=== PATIENT | female | born 1955 | race African-American/Black ===

== ENCOUNTER 2017-12-19 13:42 | Outpatient (CLI) | payer OTHER | END 2017-12-19 13:43 | disposition home or self-care (01) | LOC: BICMAMMO 13:42 | PROVIDERS: ATTEND Emergency Medicine | DX: Z12.31 Encounter for screening mammogram for malignant neoplasm of breast (principal); Z85.41 Personal history of malignant neoplasm of cervix uteri | CPT/HCPCS: 77067 ==

== ENCOUNTER 2018-02-01 18:12 | Emergency (ER) | payer OTHER ==
[2018-02-01] MEDS ORDERED: Oxymetazoline HCl 0.05% ( 15 ML ) ONE (18:30)
== END 2018-02-01 19:51 | disposition home or self-care (01) ==
LOC: ERS 18:12
DX: R04.0 Epistaxis (principal); E78.5 Hyperlipidemia, unspecified; E78.1 Pure hyperglyceridemia; I10 Essential (primary) hypertension; F32.9 Major depressive disorder, single episode, unspecified; F17.210 Nicotine dependence, cigarettes, uncomplicated; Z79.899 Other long term (current) drug therapy; Z79.82 Long term (current) use of aspirin
CPT/HCPCS: 30901

== ENCOUNTER 2018-02-04 09:55 | Emergency (ER) | payer OTHER | END 2018-02-04 11:55 | disposition home or self-care (01) | LOC: ERS 09:55 | DX: R04.0 Epistaxis (principal); E78.2 Mixed hyperlipidemia; I10 Essential (primary) hypertension; F32.9 Major depressive disorder, single episode, unspecified; F17.210 Nicotine dependence, cigarettes, uncomplicated; Z79.899 Other long term (current) drug therapy; Z79.82 Long term (current) use of aspirin | CPT/HCPCS: 99283 ==

== ENCOUNTER 2020-03-15 13:53 | Outpatient (CLI) | payer OTHER ==
--- NOTE | 2020-03-15 15:06 | MMO ---
Bilateral MAMMO Bilat Screen DDI. CLINICAL HISTORY: Patient is 64 years old and is seen for screening. The patient has no family history of breast cancer. VIEWS: The views performed were: bilateral craniocaudal and bilateral mediolateral oblique. FILMS COMPARED: The present examination has been compared to prior imaging studies performed at [facility] on 04/22/2012, 07/24/2013, 02/10/2015 and 07/10/2016. This study has been interpreted with the assistance of computer-aided detection. MAMMOGRAM FINDINGS: There are scattered fibroglandular densities. There are no suspicious masses, suspicious calcifications, or new areas of architectural distortion. IMPRESSION: THERE IS NO MAMMOGRAPHIC EVIDENCE OF MALIGNANCY. A ROUTINE FOLLOW-UP MAMMOGRAM IN 1 YEAR IS RECOMMENDED. ACR BI-RADS Category 1 - Negative MAMMOGRAPHY NOTE: 1. A negative mammogram report should not delay a biopsy if a dominant of clinically suspicious mass is present. 2. Approximately 10% to 15% of breast cancers are not detected by mammography. 3. Adenosis and dense breasts may obscure an underlying neoplasm. Reported by: YENI CASTILLO MD Electonically Signed: [id number]
== END 2020-03-15 13:54 | disposition home or self-care (01) ==
LOC: BICMAMMO 13:53
PROVIDERS: ATTEND Hospitalist
DX: Z12.31 Encounter for screening mammogram for malignant neoplasm of breast (principal)
CPT/HCPCS: 77067

== ENCOUNTER 2020-06-22 21:34 | Emergency (ER) | payer OTHER ==
[2020-06-22] MEDS ORDERED: Aspirin Chewable 81 MG TAB ONE (22:40)
[2020-06-22 23:11] LABS: Hemoglobin 15.7 g/dL (12.0-16.0); Mean Corpuscular HGB CONC 31.8 g/dL (32.0-36.0); Mean Corpuscular Hemoglobin 28.7 pg (27.0-31.0); Mean Corpuscular Volume 90.3 fL (78.0-98.0); RBC Distribution Width 13.4 % (11.5-14.5); Red Blood Cell (RBC) Count 5.47 mill/uL (4.20-5.40)
[2020-06-22 23:22] LABS: ALT (SGPT) 24 U/L (8-55); AST (SGOT) 18 U/L (5-34); Albumin 3.7 g/dL (3.4-4.8); Alkaline Phosphatase 90 U/L (40-110); Anion Gap 8 mmol/L (10-20); BUN (Urea Nitrogen) 13 mg/dL (9.8-20.1); Bilirubin, Total 0.3 mg/dL (0.2-1.2); Calc. Creatinine Clearance 0 mL/min (70-130); Calcium 8.9 mg/dL (7.8-10.44); Carbon Dioxide 31 mmol/L (23-31); Chloride 104 mmol/L (98-107); Globulin 3.3 g/dL (2.4-3.5); Glucose 111 mg/dL (80-115); Potassium 3.3 mmol/L (3.5-5.1); Sodium 140 mmol/L (136-145)
[2020-06-22 23:38] LABS: #Basophils 0.1 thou/uL (0.0-0.2); #Eosinphils 0.3 thou/uL (0.0-0.7); #Lymphocytes 2.7 thou/uL (1.20-3.40); #Monocytes 0.5 thou/uL (0.11-0.59); %Basophils 0.8 % (0.0-1.0); %Eosinophils 3.5 % (0.0-10.0); %Lymphocytes 31.5 % (21.0-51.0); %Monocytes 6.1 % (0.0-10.0); %Neutrophils 58.1 % (42.0-75.0); Mean Platelet Volume 10.9 fL (7.4-10.4); Platelet Count 135 thou/uL (130-400); Platelet Morphology Comment Appears Decreased; White Blood Cell (WBC) Count 8.6 thou/uL (4.8-10.8)
[2020-06-23 01:18] LABS: Troponin I Less than 0.010 ng/mL (< 0.028)
== END 2020-06-23 01:30 | disposition home or self-care (01) ==
LOC: ERS 21:34
DX: R07.9 Chest pain, unspecified (principal); M79.605 Pain in left leg; E87.6 Hypokalemia; E78.5 Hyperlipidemia, unspecified; E78.00 Pure hypercholesterolemia, unspecified; I10 Essential (primary) hypertension; Z87.891 Personal history of nicotine dependence; Z79.82 Long term (current) use of aspirin; Z79.899 Other long term (current) drug therapy
CPT/HCPCS: 36415; 71045; 80053; 83880; 84484; 85025; 85379; 93005

== ENCOUNTER 2021-01-18 20:06 | Emergency (ER) | payer OTHER ==
[2021-01-18 20:42] LABS: Hemoglobin 17.4 g/dL (12.0-16.0); Mean Corpuscular HGB CONC 32.8 g/dL (32.0-36.0); Mean Corpuscular Hemoglobin 29.4 pg (27.0-31.0); Mean Corpuscular Volume 89.5 fL (78.0-98.0); RBC Distribution Width 13.4 % (11.5-14.5); Red Blood Cell (RBC) Count 5.92 mill/uL (4.20-5.40); White Blood Cell (WBC) Count 4.8 thou/uL (4.8-10.8)
[2021-01-18 20:56] LABS: #Lymphocytes 2.1 thou/uL (1.20-3.40); #Monocytes 0.3 thou/uL (0.11-0.59); #Neutrophils 2.4 thou/uL (1.40-6.50); %Basophils 0.3 % (0.0-1.0); %Lymphocytes 43.7 % (21.0-51.0); %Monocytes 6.5 % (0.0-10.0); %Neutrophils 49.5 % (42.0-75.0); Mean Platelet Volume 11.3 fL (7.4-10.4); Platelet Count 83 thou/uL (130-400)
[2021-01-18 20:57] LABS: Large Platelets SLIGHT; MDiff Complete? YES; Platelet Morphology Comment Appears Decreased; RBC Morphology Normal
[2021-01-18 20:59] LABS: ALT (SGPT) 27 U/L (8-55); AST (SGOT) 36 U/L (5-34); Alkaline Phosphatase 71 U/L (40-110); Anion Gap 16 mmol/L (10-20); BUN (Urea Nitrogen) 11 mg/dL (9.8-20.1); Bilirubin, Total 0.4 mg/dL (0.2-1.2); Calc. Creatinine Clearance 0 mL/min (70-130); Calcium 9.1 mg/dL (7.8-10.44); Carbon Dioxide 28 mmol/L (23-31); Chloride 101 mmol/L (98-107); Globulin 3.7 g/dL (2.4-3.5); Glucose 123 mg/dL (80-115); Potassium 3.5 mmol/L (3.5-5.1); Protein, Total 7.7 g/dL (5.8-8.1); Sodium 141 mmol/L (136-145)
[2021-01-18 22:44] LABS: SARS-CoV-2 NAA Rapid Test DETECTED (NotDetected)
== END 2021-01-18 23:23 | disposition home or self-care (01) ==
LOC: ERS 20:06
DX: U07.1 COVID-19 (principal); J12.82 Pneumonia due to coronavirus disease 2019; E86.0 Dehydration; E78.5 Hyperlipidemia, unspecified; E78.1 Pure hyperglyceridemia; E78.00 Pure hypercholesterolemia, unspecified; I10 Essential (primary) hypertension; Z87.891 Personal history of nicotine dependence; Z79.899 Other long term (current) drug therapy; Z79.82 Long term (current) use of aspirin
CPT/HCPCS: 71045; 80053; 84484; 85025; 93005; U0002

== ENCOUNTER 2021-08-31 13:39 | Outpatient (CLI) | payer MEDICARE, OTHER | END 2021-08-31 13:40 | disposition home or self-care (01) | LOC: MRI 13:39 | PROVIDERS: ATTEND Surgery | DX: M51.16 Intervertebral disc disorders with radiculopathy, lumbar region (principal); M47.26 Other spondylosis with radiculopathy, lumbar region; M48.061 Spinal stenosis, lumbar region without neurogenic claudication | CPT/HCPCS: 72120; 72148 ==

== ENCOUNTER 2021-11-03 13:54 | Outpatient (CLI) | payer MEDICARE, OTHER | END 2021-11-03 13:55 | disposition home or self-care (01) | LOC: BICMAMMO 13:54 | PROVIDERS: ATTEND Student in an Organized Health Care Education/Training Program | DX: Z12.31 Encounter for screening mammogram for malignant neoplasm of breast (principal) | CPT/HCPCS: 77063; 77067 ==

== ENCOUNTER 2022-03-31 15:39 | Outpatient (CLI) | payer MEDICARE, OTHER ==
[2022-03-31 17:02] LABS: Hemoglobin 16.4 g/dL (12.0-15.5); Mean Corpuscular HGB CONC 32.3 g/dL (32.0-36.0); Mean Corpuscular Hemoglobin 28.3 pg (27.0-33.0); Mean Corpuscular Volume 87.4 fl (81.6-98.3); Mean Platelet Volume 12.8 fl (7.4-10.4); Platelet Count 185 10x3/uL (150-450); RBC Distribution Width 15.9 % (11.5-14.5); White Blood Cell (WBC) Count 9.7 10x3/uL (3.5-10.5)
[2022-03-31 17:15] LABS: PTT 29.9 sec (22.0-33.0); Prothrombin Time 10.5 sec (9.5-12.1)
[2022-03-31 17:22] LABS: Anion Gap 15 mmol/L (10-20); BUN (Urea Nitrogen) 14 mg/dL (9.8-20.1); Calc. Creatinine Clearance 0 mL/min (70-130); Calcium 9.3 mg/dL (7.8-10.44); Carbon Dioxide 23 mmol/L (23-31); Chloride 107 mmol/L (98-107); Estimated GFR 78; Glucose 106 mg/dL (80-115); Potassium 3.7 mmol/L (3.5-5.1); Sodium 141 mmol/L (136-145)
== END 2022-03-31 15:40 | disposition home or self-care (01) ==
LOC: LABBT 15:39
PROVIDERS: ATTEND Surgery
DX: Z01.812 Encounter for preprocedural laboratory examination (principal); M54.16 Radiculopathy, lumbar region; M48.062 Spinal stenosis, lumbar region with neurogenic claudication
CPT/HCPCS: 80048; 85027; 85610; 85730

== ENCOUNTER 2022-04-04 07:41 | Inpatient (IN) | payer OTHER, MEDICAID ==
[2022-04-03 10:28] VITALS: BMI 39.0
[2022-04-04] MEDS ORDERED: Levofloxacin 500 mg/D5W 100 ml Premix Bag ONE (09:10)
[2022-04-04] MEDS ORDERED: Clindamycin/D5W 900 mg/50 ml Premix Bag ONE ×2 (09:10→09:42)
[2022-04-04] MEDS ORDERED: SUGAMMADEX SODIUM 200 MG/2 ML VIAL ONE (09:32)
[2022-04-04] MEDS ORDERED: Fentanyl 250 MCG/5 ML VIAL ONE (09:32)
[2022-04-04] MEDS ORDERED: Thrombin 5000 UNITS/5 ML VIAL ONE ×2 (09:33→11:46)
[2022-04-04] MEDS ORDERED: Vancomycin 1 GM VIAL ONE (09:33)
[2022-04-04] MEDS ORDERED: Bacitracin Zinc Ointment 30 gm TUBE ONE (09:33)
[2022-04-04] MEDS ORDERED: Neomycin-Polymyxin 1 ML AMP ONE (09:34)
[2022-04-04 09:39] LABS: SARS-CoV-2 NAA Rapid Test Not Detected (NotDetected)
[2022-04-04] MEDS ORDERED: diphenhydrAMINE 25 MG CAP PO PRN (09:39)
[2022-04-04] MEDS ORDERED: Ondansetron PF 4 MG/2 ML Vial IVP PRN (09:39)
[2022-04-04] MEDS ORDERED: HYDROcodone/Acetaminophen 7.5/325 mg Tablet PO PRN (09:39)
[2022-04-04] MEDS ORDERED: Acetaminophen 325 MG TAB PO PRN ×2 (09:39→09:58)
[2022-04-04] MEDS ORDERED: NEOSTIGMINE 3 MG/3 ML SYR 3 MG/3 ML SYRINGE ONE (09:58)
[2022-04-04] MEDS ORDERED: Dexamethasone 20 MG/5 ML VIAL ONE (09:58)
[2022-04-04] MEDS ORDERED: Glycopyrrolate 0.2 MG/ML 5 ML SYRINGE ONE (09:58)
[2022-04-04] MEDS ORDERED: Ondansetron PF 4 MG/2 ML Vial ONE (09:58)
[2022-04-04] MEDS ORDERED: diphenhydrAMINE 50 MG/ML VIAL ONE (09:58)
[2022-04-04] MEDS ORDERED: PHENYLEPHRINE-NS 100 MCG/ML 10 ML SYRINGE ONE (09:58)
[2022-04-04] MEDS ORDERED: ePHEDrine 50 MG/ML VIAL ONE (09:58)
[2022-04-04] MEDS ORDERED: Lidocaine 1% PF 5 ML VIAL ONE (09:58)
[2022-04-04] MEDS ORDERED: PROPOFOL 200 MG/20 ML VIAL ONE (09:58)
[2022-04-04] MEDS ORDERED: Rocuronium Bromide 10 MG/ML (10ML VIAL) ONE (09:58)
[2022-04-04] MEDS ORDERED: hydrALAZINE 20 MG/ML VIAL SLOW IVP PRN (09:59)
[2022-04-04] MEDS ORDERED: Polyethylene Glycol 3350 17 GM Packet PO PRN (10:00)
[2022-04-04] MEDS ORDERED: Vancomycin (BATCH) 1.5 GRAM/300 ML BAG ONE (10:27)
[2022-04-04] MEDS ORDERED: Ondansetron HCl/PF 4 MG/2 ML Vial IVP PRN (10:50)
[2022-04-04] MEDS ORDERED: Promethazine HCl 25 MG/ML VIAL IM PRN (10:50)
[2022-04-04] MEDS ORDERED: Fentanyl 100 MCG/2 ML VIAL ONE ×2 (13:06→13:51)
[2022-04-04] MEDS: Pregabalin 50 MG CAP PO SCH ×2 (15:35→19:32)
[2022-04-04] MEDS: HYDROcodone/Acetaminophen 7.5/325 mg Tablet PO PRN (15:35)
[2022-04-04] MEDS: Sodium Chloride 0.9% 1,000 ML IV SCH (15:38)
[2022-04-04] MEDS: Morphine 2 MG/ML VIAL SLOW IVP PRN ×2 (17:15→21:51)
[2022-04-04] MEDS: Clindamycin/D5W 900 MG in Premix Bag 1 BAG IVPB SCH (18:33)
[2022-04-04] MEDS: Acetaminophen/Codeine 30-300mg Tablet PO PRN (19:29)
[2022-04-04] MEDS: Oxybutynin 5 MG TAB PO SCH (19:30)
[2022-04-04] MEDS: Docusate 100 MG CAP PO SCH (19:33)
[2022-04-04] MEDS: Diazepam 5 MG TAB PO PRN (19:33)
[2022-04-04] MEDS: Atorvastatin Calcium 20 MG TAB PO SCH (19:33)
[2022-04-05] MEDS: Clindamycin/D5W 900 MG in Premix Bag 1 BAG IVPB SCH (02:11)
[2022-04-05] MEDS: HYDROcodone/Acetaminophen 7.5/325 mg Tablet PO PRN ×5 (02:19→23:28)
[2022-04-05 05:54] LABS: #Lymphocytes 2.2 thou/uL (1.20-3.40); #Monocytes 1.3 thou/uL (0.11-0.59); %Basophils 0.1 % (0.0-1.0); %Lymphocytes 17.5 % (21.0-51.0); %Monocytes 10.4 % (0.0-10.0); Hemoglobin 13.8 g/dL (12.0-16.0); Mean Corpuscular HGB CONC 31.4 g/dL (32.0-36.0); Mean Corpuscular Hemoglobin 28.9 pg (27.0-31.0); Mean Corpuscular Volume 91.9 fl (78.0-98.0); Mean Platelet Volume 10.7 fL (7.4-10.4); Platelet Count 139 10x3/uL (130-400); RBC Distribution Width 13.4 % (11.5-14.5); Red Blood Cell (RBC) Count 4.79 mill/uL (4.20-5.40); White Blood Cell (WBC) Count 12.6 10x3/uL (4.8-10.8)
[2022-04-05 06:10] LABS: Anion Gap 11 mmol/L (10-20); BUN (Urea Nitrogen) 11 mg/dL (9.8-20.1); Calc. Creatinine Clearance 126 mL/min (70-130); Calcium 8.8 mg/dL (7.8-10.44); Carbon Dioxide 26 mmol/L (23-31); Chloride 106 mmol/L (98-107); Estimated GFR 86; Glucose 114 mg/dL (80-115); Potassium 3.2 mmol/L (3.5-5.1); Sodium 140 mmol/L (136-145)
[2022-04-05] MEDS: Sodium Chloride 0.9% 1,000 ML IV SCH ×2 (08:00→20:02)
[2022-04-05] MEDS ORDERED: Vancomycin HCl 1.5 GM in Sodium Chloride 0.9% 250 ML 300 ML IVPB SCH (08:00)
[2022-04-05] MEDS: Famotidine 20 MG TAB PO SCH (08:03)
[2022-04-05] MEDS: Docusate 100 MG CAP PO SCH ×2 (08:03→21:37)
[2022-04-05] MEDS: Oxybutynin 5 MG TAB PO SCH ×2 (08:03→21:37)
[2022-04-05] MEDS: Pregabalin 50 MG CAP PO SCH ×3 (08:04→21:37)
[2022-04-05] MEDS: Hydrochlorothiazide 25 MG TAB PO SCH (08:04)
[2022-04-05] MEDS: Amlodipine 10 MG TAB PO SCH (08:05)
[2022-04-05] MEDS: Sertraline 100 MG TAB PO SCH (08:05)
[2022-04-05] MEDS ORDERED: Vancomycin 1.5 GRAM/300 ML BAG 1.5 GM in Premix Bag 1 BAG IVPB SCH (09:00)
[2022-04-05] MEDS: Acetaminophen/Codeine 30-300mg Tablet PO PRN ×2 (10:41→21:38)
[2022-04-05] MEDS: Morphine 2 MG/ML VIAL SLOW IVP PRN (17:15)
[2022-04-05] MEDS: Atorvastatin Calcium 20 MG TAB PO SCH (21:37)
[2022-04-06] MEDS: Acetaminophen/Codeine 30-300mg Tablet PO PRN ×3 (02:13→14:50)
[2022-04-06] MEDS: HYDROcodone/Acetaminophen 7.5/325 mg Tablet PO PRN ×4 (05:38→20:36)
[2022-04-06] MEDS: Pregabalin 50 MG CAP PO SCH ×3 (08:08→20:35)
[2022-04-06] MEDS: Famotidine 20 MG TAB PO SCH (08:09)
[2022-04-06] MEDS: Docusate 100 MG CAP PO SCH ×2 (08:09→20:35)
[2022-04-06] MEDS: Amlodipine 10 MG TAB PO SCH (08:09)
[2022-04-06] MEDS: Oxybutynin 5 MG TAB PO SCH ×2 (08:10→20:35)
[2022-04-06] MEDS: Sertraline 100 MG TAB PO SCH (08:10)
[2022-04-06] MEDS: Hydrochlorothiazide 25 MG TAB PO SCH (08:10)
[2022-04-06] MEDS: Diazepam 5 MG TAB PO PRN ×2 (09:31→22:42)
[2022-04-06] MEDS: Sodium Chloride 0.9% 1,000 ML IV SCH ×2 (10:19→21:39)
[2022-04-06] MEDS: Atorvastatin Calcium 20 MG TAB PO SCH (20:35)
[2022-04-07] MEDS: Acetaminophen/Codeine 30-300mg Tablet PO PRN ×3 (02:02→16:50)
[2022-04-07] MEDS: HYDROcodone/Acetaminophen 7.5/325 mg Tablet PO PRN ×2 (04:02→19:08)
[2022-04-07] MEDS: Famotidine 20 MG TAB PO SCH (08:08)
[2022-04-07] MEDS: Oxybutynin 5 MG TAB PO SCH ×2 (08:08→19:30)
[2022-04-07] MEDS: Sertraline 100 MG TAB PO SCH (08:08)
[2022-04-07] MEDS: Pregabalin 50 MG CAP PO SCH ×3 (08:08→19:30)
[2022-04-07] MEDS: Amlodipine 10 MG TAB PO SCH ×2 (08:09→09:06)
[2022-04-07] MEDS: Docusate 100 MG CAP PO SCH ×2 (08:09→19:30)
[2022-04-07] MEDS: Hydrochlorothiazide 25 MG TAB PO SCH ×2 (08:09→14:50)
[2022-04-07] MEDS: Diazepam 5 MG TAB PO PRN ×2 (08:55→21:00)
[2022-04-07] MEDS ORDERED: FLU VACC QS2022-23(65YR UP)/PF 240 MCG/0.7 ML SYRINGE IM ONE (09:00)
[2022-04-07] MEDS ORDERED: Ketorolac Tromethamine 30 MG/ML VIAL IVP SCH (09:15)
[2022-04-07 09:44] LABS: Hemoglobin 13.4 g/dL (12.0-16.0); Mean Corpuscular HGB CONC 31.5 g/dL (32.0-36.0); Mean Corpuscular Hemoglobin 28.4 pg (27.0-31.0); Mean Corpuscular Volume 90.3 fl (78.0-98.0); RBC Distribution Width 13.2 % (11.5-14.5); Red Blood Cell (RBC) Count 4.73 mill/uL (4.20-5.40); White Blood Cell (WBC) Count 10.3 10x3/uL (4.8-10.8)
[2022-04-07 09:47] LABS: Anion Gap 12 mmol/L (10-20); BUN (Urea Nitrogen) 7 mg/dL (9.8-20.1); Calc. Creatinine Clearance 128 mL/min (70-130); Calcium 8.8 mg/dL (7.8-10.44); Carbon Dioxide 26 mmol/L (23-31); Chloride 103 mmol/L (98-107); Estimated GFR 87; Glucose 126 mg/dL (80-115); Sodium 138 mmol/L (136-145)
[2022-04-07 10:01] LABS: #Eosinphils 0.1 thou/uL (0.0-0.7); #Lymphocytes 2.9 thou/uL (1.20-3.40); #Monocytes 0.9 thou/uL (0.11-0.59); #Neutrophils 6.4 thou/uL (1.40-6.50); %Basophils 0.2 % (0.0-1.0); %Eosinophils 0.9 % (0.0-10.0); %Lymphocytes 28.1 % (21.0-51.0); %Monocytes 8.4 % (0.0-10.0); %Neutrophils 62.4 % (42.0-75.0); Large Platelets SLIGHT; MDiff Complete? YES; Mean Platelet Volume 10.7 fL (7.4-10.4); Platelet Count 119 10x3/uL (130-400); Platelet Morphology Comment PLT clumps seen-ADEQ
[2022-04-07] MEDS ORDERED: Potassium Chloride 10 MEQ in Premix Bag 1 BAG IVPB SCH (11:30)
[2022-04-07] MEDS: Morphine 2 MG/ML VIAL SLOW IVP PRN (11:32)
[2022-04-07] MEDS: Atorvastatin Calcium 20 MG TAB PO SCH (19:30)
[2022-04-07] MEDS: Sodium Chloride 0.9% 1,000 ML IV SCH (19:42)
[2022-04-07] MEDS: Ketorolac Tromethamine 30 MG/ML VIAL IVP PRN (21:00)
[2022-04-08] MEDS: Sodium Chloride 0.9% 1,000 ML IV SCH ×2 (00:07→17:43)
[2022-04-08] MEDS: Ketorolac Tromethamine 30 MG/ML VIAL IVP PRN ×2 (02:06→10:05)
[2022-04-08] MEDS: HYDROcodone/Acetaminophen 7.5/325 mg Tablet PO PRN ×4 (05:21→20:05)
[2022-04-08] MEDS: Pregabalin 50 MG CAP PO SCH ×3 (08:27→20:04)
[2022-04-08] MEDS: Diazepam 5 MG TAB PO PRN ×2 (08:28→23:21)
[2022-04-08] MEDS: Hydrochlorothiazide 25 MG TAB PO SCH (08:28)
[2022-04-08] MEDS: Oxybutynin 5 MG TAB PO SCH ×2 (08:28→20:05)
[2022-04-08] MEDS: Sertraline 100 MG TAB PO SCH (08:28)
[2022-04-08] MEDS: Amlodipine 10 MG TAB PO SCH (08:29)
[2022-04-08] MEDS: Docusate 100 MG CAP PO SCH ×2 (08:29→20:04)
[2022-04-08] MEDS: Famotidine 20 MG TAB PO SCH (08:29)
[2022-04-08] MEDS: Acetaminophen/Codeine 30-300mg Tablet PO PRN (11:52)
[2022-04-08] MEDS: Atorvastatin Calcium 20 MG TAB PO SCH (20:04)
[2022-04-09] MEDS: Morphine 2 MG/ML VIAL SLOW IVP PRN (01:13)
[2022-04-09] MEDS: HYDROcodone/Acetaminophen 7.5/325 mg Tablet PO PRN ×3 (02:58→20:24)
[2022-04-09] MEDS: Ketorolac Tromethamine 30 MG/ML VIAL IVP PRN (05:08)
[2022-04-09] MEDS: Sodium Chloride 0.9% 1,000 ML IV SCH ×2 (05:19→22:50)
[2022-04-09] MEDS: Sertraline 100 MG TAB PO SCH (08:44)
[2022-04-09] MEDS: Docusate 100 MG CAP PO SCH ×2 (08:44→20:24)
[2022-04-09] MEDS: Pregabalin 50 MG CAP PO SCH ×3 (08:44→20:23)
[2022-04-09] MEDS: Amlodipine 10 MG TAB PO SCH (08:44)
[2022-04-09] MEDS: Famotidine 20 MG TAB PO SCH (08:44)
[2022-04-09] MEDS: Hydrochlorothiazide 25 MG TAB PO SCH (08:45)
[2022-04-09] MEDS: Oxybutynin 5 MG TAB PO SCH ×2 (08:45→20:23)
[2022-04-09] MEDS: Atorvastatin Calcium 20 MG TAB PO SCH (20:25)
[2022-04-09] MEDS: Diazepam 5 MG TAB PO PRN (22:43)
[2022-04-10] MEDS: HYDROcodone/Acetaminophen 7.5/325 mg Tablet PO PRN ×3 (03:10→20:09)
[2022-04-10] MEDS: Sodium Chloride 0.9% 1,000 ML IV SCH ×2 (07:47→22:43)
[2022-04-10] MEDS: Ketorolac Tromethamine 30 MG/ML VIAL IVP PRN (07:48)
[2022-04-10] MEDS: Oxybutynin 5 MG TAB PO SCH ×2 (08:23→20:11)
[2022-04-10] MEDS: Amlodipine 10 MG TAB PO SCH (08:23)
[2022-04-10] MEDS: Famotidine 20 MG TAB PO SCH (08:24)
[2022-04-10] MEDS: Sertraline 100 MG TAB PO SCH (08:24)
[2022-04-10] MEDS: Docusate 100 MG CAP PO SCH ×2 (08:24→20:17)
[2022-04-10] MEDS: Hydrochlorothiazide 25 MG TAB PO SCH (08:24)
[2022-04-10] MEDS: Pregabalin 50 MG CAP PO SCH ×3 (08:25→20:11)
[2022-04-10] MEDS: Atorvastatin Calcium 20 MG TAB PO SCH (20:11)
[2022-04-10] MEDS: Diazepam 5 MG TAB PO PRN (23:37)
[2022-04-11] MEDS: HYDROcodone/Acetaminophen 7.5/325 mg Tablet PO PRN ×5 (02:04→20:31)
[2022-04-11] MEDS: Amlodipine 10 MG TAB PO SCH (08:19)
[2022-04-11] MEDS: Docusate 100 MG CAP PO SCH ×2 (08:20→20:33)
[2022-04-11] MEDS: Famotidine 20 MG TAB PO SCH (08:20)
[2022-04-11] MEDS: Hydrochlorothiazide 25 MG TAB PO SCH (08:21)
[2022-04-11] MEDS: Pregabalin 50 MG CAP PO SCH ×3 (08:21→20:33)
[2022-04-11] MEDS: Oxybutynin 5 MG TAB PO SCH ×2 (08:21→20:33)
[2022-04-11] MEDS: Sertraline 100 MG TAB PO SCH (08:22)
[2022-04-11] MEDS: Sodium Chloride 0.9% 1,000 ML IV SCH (12:00)
[2022-04-11] MEDS: Atorvastatin Calcium 20 MG TAB PO SCH (20:31)
[2022-04-12] MEDS: HYDROcodone/Acetaminophen 7.5/325 mg Tablet PO PRN ×3 (02:10→14:02)
[2022-04-12] MEDS: Sodium Chloride 0.9% 1,000 ML IV SCH ×2 (03:56→14:02)
[2022-04-12] MEDS: Pregabalin 50 MG CAP PO SCH ×2 (08:36→14:03)
[2022-04-12] MEDS: Oxybutynin 5 MG TAB PO SCH (08:36)
[2022-04-12] MEDS: Amlodipine 10 MG TAB PO SCH (08:37)
[2022-04-12] MEDS: Docusate 100 MG CAP PO SCH (08:37)
[2022-04-12] MEDS: Hydrochlorothiazide 25 MG TAB PO SCH (08:38)
[2022-04-12] MEDS: Famotidine 20 MG TAB PO SCH (08:38)
[2022-04-12] MEDS: Sertraline 100 MG TAB PO SCH (08:38)
[2022-04-12 13:27] VITALS: BP 125/72; TEMP 98
== END 2022-04-12 16:37 | DRG 517 ==
LOC: SDC 07:41 → MSONC 15:07 → OBSVTOIN 04-05 07:52
PROVIDERS: ADMIT Surgery; ATTEND Surgery
PROC: 01NB0ZZ Release Lumbar Nerve, Open Approach (ICD-10-PCS; principal; 2022-04-04)
DX: M48.062 Spinal stenosis, lumbar region with neurogenic claudication (principal); M54.16 Radiculopathy, lumbar region; Z20.822 Contact with and (suspected) exposure to COVID-19; Z88.0 Allergy status to penicillin; Z88.8 Allergy status to other drugs, medicaments and biological substances; Z79.82 Long term (current) use of aspirin; Z79.899 Other long term (current) drug therapy
CPT/HCPCS: 36415; 80048; 85025; 87811; 93970; 96374; 96375; 96376; G0378; J1100; J1200; J1885; J1956; J2272; J2405; J2704; J3010; J3370; J3480; J3490; J7050; U0002

== ENCOUNTER 2022-08-06 16:55 | Emergency (ER) | payer OTHER ==
[2022-08-06] MEDS ORDERED: Furosemide 40 MG/4 ML VIAL ONE (17:16)
[2022-08-06 17:28] LABS: #Eosinphils 0.5 thou/uL (0.0-0.7); #Monocytes 0.7 thou/uL (0.11-0.59); #Neutrophils 3.9 thou/uL (1.40-6.50); %Basophils 0.4 % (0.0-1.0); %Eosinophils 5.7 % (0.0-10.0); %Lymphocytes 34.8 % (21.0-51.0); %Neutrophils 49.8 % (42.0-75.0); Hemoglobin 14.5 g/dL (12.0-16.0); Mean Corpuscular HGB CONC 30.2 g/dL (32.0-36.0); Mean Corpuscular Hemoglobin 25.8 pg (27.0-31.0); Mean Corpuscular Volume 85.3 fl (78.0-98.0); Mean Platelet Volume 11.3 fL (7.4-10.4); Platelet Count 156 10x3/uL (130-400); RBC Distribution Width 16.3 % (11.5-14.5); Red Blood Cell (RBC) Count 5.63 mill/uL (4.20-5.40); White Blood Cell (WBC) Count 7.9 10x3/uL (4.8-10.8)
[2022-08-06] MEDS ORDERED: Ipratropium/Albuterol 3 ML NEB ONE (17:28)
[2022-08-06] MEDS ORDERED: Nitroglycerin 2% Ointment 1 INCH/1 GM Packet ONE (17:28)
[2022-08-06] MEDS ORDERED: Aspirin Chewable 81 MG TAB ONE (17:28)
[2022-08-06] MEDS ORDERED: methylPREDNISolone Sod Succ/PF 125 MG/2 ML VIAL ONE (17:28)
[2022-08-06 17:42] LABS: INR-International Normal Ratio 1.1; PTT 28.8 sec (22.9-36.1); Prothrombin Time 14.4 sec (12.0-14.7)
[2022-08-06 17:52] LABS: ALT (SGPT) 16 U/L (8-55); AST (SGOT) 14 U/L (5-34); Albumin 4.1 g/dL (3.4-4.8); Alkaline Phosphatase 96 U/L (40-110); Anion Gap 14 mmol/L (10-20); BUN (Urea Nitrogen) 11 mg/dL (9.8-20.1); Bilirubin, Total 0.2 mg/dL (0.2-1.2); Calc. Creatinine Clearance 0 mL/min (70-130); Calcium 9.6 mg/dL (7.8-10.44); Carbon Dioxide 26 mmol/L (23-31); Chloride 106 mmol/L (98-107); Estimated GFR 59; Globulin 3.6 g/dL (2.4-3.5); Glucose 103 mg/dL (80-115); Potassium 3.7 mmol/L (3.5-5.1); Protein, Total 7.7 g/dL (5.8-8.1); Sodium 142 mmol/L (136-145)
[2022-08-06 18:04] LABS: SARS-CoV-2 NAA Rapid Test Not Detected (NotDetected)
[2022-08-06 18:16] LABS: Platelet Morphology Comment Platelets Normal; RBC Morphology Within Normal Limits
[2022-08-06 18:24] LABS: Bilirubin Negative (Negative); Blood, Urine Negative (Negative); Clarity Clear (Clear); Glucose, Urine (Dipstick) Normal (Negative); Ketone, Urine Negative (Negative); Leukocyte Negative Leu/uL (Negative); Nitrite Negative (Negative); Protein, Urine (Dipstick) Negative (Neg-Trace); Specific Gravity, Urine 1.006 (1.002-1.036); Urobilinogen Normal mg/dL (Less than 2)
== END 2022-08-06 19:43 | disposition home or self-care (01) ==
LOC: ERS 16:55
DX: J44.1 Chronic obstructive pulmonary disease with (acute) exacerbation (principal); E78.2 Mixed hyperlipidemia; I10 Essential (primary) hypertension; Z87.891 Personal history of nicotine dependence; Z20.822 Contact with and (suspected) exposure to COVID-19
CPT/HCPCS: 0240U; 71045; 80053; 81003; 83605; 85025; 85610; 85730; 87040; 87086; 93005; 94760; 96374; 96375; 99285; 36415; J1940; J2930; J7620

== ENCOUNTER 2022-08-30 17:32 | Emergency (ER) | payer OTHER ==
[2022-08-30] MEDS ORDERED: Ipratropium/Albuterol 3 ML NEB ONE ×2 (18:10→19:45)
[2022-08-30] MEDS ORDERED: methylPREDNISolone Sod Succ/PF 125 MG/2 ML VIAL ONE (18:10)
[2022-08-30 18:21] LABS: #Eosinphils 0.6 thou/uL (0.0-0.7); #Monocytes 0.5 thou/uL (0.11-0.59); #Neutrophils 4.5 thou/uL (1.40-6.50); %Basophils 0.3 % (0.0-1.0); %Eosinophils 7.2 % (0.0-10.0); %Lymphocytes 29.8 % (21.0-51.0); %Monocytes 6.8 % (0.0-10.0); %Neutrophils 55.8 % (42.0-75.0); Hemoglobin 14.8 g/dL (12.0-16.0); Mean Corpuscular HGB CONC 30.8 g/dL (32.0-36.0); Mean Corpuscular Hemoglobin 26.3 pg (27.0-31.0); Mean Corpuscular Volume 85.4 fl (78.0-98.0); Mean Platelet Volume 11.3 fL (7.4-10.4); Platelet Count 148 10x3/uL (130-400); RBC Distribution Width 16.4 % (11.5-14.5); Red Blood Cell (RBC) Count 5.62 mill/uL (4.20-5.40)
[2022-08-30 18:35] LABS: Actual Bicarbonate (HCO3v) 28.7 mEq/L (22-28); Base Excess 3.1 mEq/L (-2.0 to +3.0); Calcium, Ionized (venous) 1.15 mmol/L (1.16-1.32); Chloride (VBG) 103 mmol/L (98-106); Hematocrit-VBG 46 % (36.0-47.0); Hemoglobin (Hb) 15.8 g/dL (11.7-16.1); Potassium (VBG) 3.23 mmol/L (3.70-5.30); Sodium 140.1 mmol/L (133-146); pH (venous) 7.403 (7.32-7.43)
[2022-08-30 18:49] LABS: ALT (SGPT) 15 U/L (8-55); AST (SGOT) 11 U/L (5-34); Alkaline Phosphatase 97 U/L (40-110); Anion Gap 15 mmol/L (10-20); BUN (Urea Nitrogen) 7 mg/dL (9.8-20.1); Bilirubin, Total 0.4 mg/dL (0.2-1.2); Calc. Creatinine Clearance 0 mL/min (70-130); Calcium 9.8 mg/dL (7.8-10.44); Carbon Dioxide 24 mmol/L (23-31); Chloride 105 mmol/L (98-107); Estimated GFR 67; Globulin 3.4 g/dL (2.4-3.5); Glucose 164 mg/dL (80-115); Magnesium 1.9 mg/dL (1.6-2.6); Potassium 3.2 mmol/L (3.5-5.1); Protein, Total 7.4 g/dL (5.8-8.1); Sodium 141 mmol/L (136-145)
== END 2022-08-30 21:26 | disposition home or self-care (01) ==
LOC: ERS 17:32
DX: J44.1 Chronic obstructive pulmonary disease with (acute) exacerbation (principal); E78.2 Mixed hyperlipidemia; I10 Essential (primary) hypertension; Z87.891 Personal history of nicotine dependence
CPT/HCPCS: 36415; 71045; 80053; 82805; 83735; 83880; 85025; 96374; J2930; J7620

== ENCOUNTER 2022-09-06 15:18 | Outpatient (CLI) | payer OTHER, MEDICAID | END 2022-09-06 15:19 | disposition home or self-care (01) | LOC: BICMAMMO 15:18 | PROVIDERS: ATTEND Student in an Organized Health Care Education/Training Program | DX: Z13.820 Encounter for screening for osteoporosis (principal) | CPT/HCPCS: 77080 ==

== ENCOUNTER 2023-03-13 10:28 | Outpatient (CLI) | payer OTHER | END 2023-03-13 10:29 | disposition home or self-care (01) | LOC: DTY/OP 10:28 | PROVIDERS: ATTEND Student in an Organized Health Care Education/Training Program | DX: E11.9 Type 2 diabetes mellitus without complications (principal) | CPT/HCPCS: 97802 ==

== ENCOUNTER 2023-05-08 14:06 | Outpatient (CLI) | payer OTHER | END 2023-05-08 14:07 | disposition home or self-care (01) | LOC: BICCT 14:06 | PROVIDERS: ATTEND Student in an Organized Health Care Education/Training Program | DX: Z12.2 Encounter for screening for malignant neoplasm of respiratory organs (principal); F17.211 Nicotine dependence, cigarettes, in remission; J43.9 Emphysema, unspecified; R91.8 Other nonspecific abnormal finding of lung field | CPT/HCPCS: 71271 ==

== ENCOUNTER 2023-05-25 12:49 | Outpatient (CLI) | payer OTHER | END 2023-05-25 12:50 | disposition home or self-care (01) | LOC: BICMAMMO 12:49 | PROVIDERS: ATTEND Student in an Organized Health Care Education/Training Program | DX: Z12.31 Encounter for screening mammogram for malignant neoplasm of breast (principal); N64.89 Other specified disorders of breast | CPT/HCPCS: 77063; 77067 ==

== ENCOUNTER 2023-05-30 14:31 | Outpatient (CLI) | payer OTHER | END 2023-05-30 14:32 | disposition home or self-care (01) | LOC: BICMAMMO 14:31 | PROVIDERS: ATTEND Student in an Organized Health Care Education/Training Program | DX: N64.89 Other specified disorders of breast (principal) | CPT/HCPCS: 77065; G0279 ==

== ENCOUNTER 2023-09-17 14:30 | Outpatient (CLI) | payer OTHER | END 2023-09-17 14:31 | disposition home or self-care (01) | LOC: RAD 14:30 | PROVIDERS: ATTEND Internal Medicine Critical Care Medicine | DX: R06.00 Dyspnea, unspecified (principal) | CPT/HCPCS: 71046 ==

== ENCOUNTER 2023-10-17 12:49 | Outpatient (CLI) | payer OTHER, MEDICAID | END 2023-10-17 12:50 | disposition home or self-care (01) | LOC: BICCT 12:49 | PROVIDERS: ATTEND Internal Medicine Critical Care Medicine | DX: R91.8 Other nonspecific abnormal finding of lung field (principal); J43.2 Centrilobular emphysema | CPT/HCPCS: 71250 ==